=== PATIENT | female | born 1970 | race Caucasian/White ===

== ENCOUNTER 2019-12-09 01:55 | Emergency (ER) | payer OTHER ==
[~2019-12-09] VITALS: Ht 160 cm; Wt 113.0 kg
[2019-12-09] MEDS ORDERED: ONDANSETRON 2MG/ML, 2ML ONE ×2 (02:08→04:46)
[2019-12-09] MEDS ORDERED: MORPHINE SULFATE 4 MG/ML, 1ML ONE ×3 (02:08→04:47)
[2019-12-09] MEDS: MORPHINE SULFATE 4 MG/ML, 1ML IVPush PRN ×2 (02:19→03:23)
[2019-12-09] MEDS ORDERED: SODIUM CHLORIDE FLUSH 10ML SYR IVF ONE (02:30)
[2019-12-09] MEDS ORDERED: ONDANSETRON 2MG/ML, 2ML IVPush ONE ×2 (02:30→05:00)
--- NOTE | 2019-12-09 02:30 | NUR ---
THIS PT PRESENTS TO THE ER AFTER BEING AWOKEN FROM SLEEP WITH A SHARP PAIN CONCENTRATED IN THE LLQ OF HER ABDOMEN. PT STATES THE ONLY THING THAT'S CHANGED IN HER ROUTINE IS D/C'ING HER CONTROL. PT STATES THIS DOES NOT FEEL LIKE UTERINE CRAMPING. PT DENIES FLANK PAIN OR ANY OTHER URINARY SYMPTOMS. PT STATES 2 NIGHTS AGO SHE HAD SOME "FAMILY ISSUES." AT BEDSIDE REPORTS PT HAD SOME ABD PAIN 2 NIGHTS AGO THAT SUBSIDED. PT AMBULATORY TO BATHROOM FOR UA WITH STEADY GAIT.
[2019-12-09 02:33] LABS: BASOPHILS % (AUTO) 1 % (0-1); EOSINOPHILS % (AUTO) 1 % (1-7); LYMPHOCYTES % (AUTO) 39 % (22-44); MEAN CORPUSCULAR HEMOGLOBIN 27.3 pg (27.0-34.8); MEAN CORPUSCULAR HGB CONC 32.4 g/dL (32.4-35.8); MEAN PLATELET VOLUME 7.7 fL (7.4-10.4); MONOCYTES % (AUTO) 5 % (2-9); NEUTROPHILS % (AUTO) 55 % (42-75); PLATELET COUNT 445 x10^3/uL (130-400); RED BLOOD COUNT 5.06 x10^6/uL (3.82-5.3); RED CELL DISTRIBUTION WIDTH 14.2 % (9.6-15.2)
[2019-12-09 02:38] LABS: ALANINE AMINOTRANSFERASE 24 U/L (12-78); ALBUMIN 3.2 g/dL (3.4-5.0); ANION GAP 8 mmol/L (5-15); CALCIUM 8.9 mg/dL (8.5-10.1); CHLORIDE 106 mmol/L (98-107); CREATININE 0.85 mg/dL (0.55-1.02)
[2019-12-09 02:43] LABS: ALKALINE PHOSPHATASE 110 U/L (45-117); BILIRUBIN,TOTAL 0.4 mg/dL (0.2-1.0); TOTAL PROTEIN 7.2 g/dL (6.4-8.2)
[2019-12-09 02:45] LABS: MICROSCOPIC INDICATED
[2019-12-09 02:53] LABS: MD NO
--- NOTE | 2019-12-09 03:27 | NUR ---
PT TO IMAGING.
--- NOTE | 2019-12-09 03:57 | NUR ---
REPORT TO [facility] RHOADES. VERONA TO ASSUME FULL CARE OF PT AT THIS TIME. PT IN BED, BERNARDINO.
[2019-12-09] MEDS ORDERED: MORPHINE SULFATE 4 MG/ML, 1ML IVPush PRN (05:00)
[2019-12-09 05:07] VITALS: BP 134/78
== END 2019-12-09 05:09 | disposition home or self-care (01) ==
LOC: ED 03:06
DX: N13.2 Hydronephrosis with renal and ureteral calculous obstruction (principal); R10.9 Unspecified abdominal pain; R11.0 Nausea; Z88.9 Allergy status to unspecified drugs, medicaments and biological substances
CPT/HCPCS: 36415; 74176; 80053; 81001; 84703; 85025; 96374; 96375; 96376; 99284; J2270; J2405